=== PATIENT | male | born 1995 | race African-American/Black ===

== ENCOUNTER 2023-12-15 23:41 | Emergency (ER) | payer SELFPAY ==
[2023-12-16] LABS: BASOPHILS ABSOLUTE AUTO 0.05 10^3/uL (0.00-0.50); BASOPHILS PERCENT AUTO 0.4 % (0-1); EOSINOPHILS ABSOLUTE AUTO 0.62 10^3/uL (0.00-1.50); EOSINOPHILS PERCENT AUTO 5.1 % (0-6); HEMATOCRIT 45.3 % (42.0-52.0); HEMOGLOBIN 14.6 g/dL (14.0-18.0); IMMATURE GRAN ABSOLUTE AUTO 0.04 10^3/uL (0.00-0.49); IMMATURE GRAN PERCENT AUTO 0.3 % (0.0-4.9); LYMPHOCYTES ABSOLUTE AUTO 4.45 10^3/uL (0.60-5.00); LYMPHOCYTES PERCENT AUTO 36.7 % (24-44); MEAN CORPUSCULAR HEMOGLOBIN 28.2 pg (27.0-32.0); MEAN CORPUSCULAR HGB CONC 32.2 g/dL (32.0-36.0); MEAN CORPUSCULAR VOLUME 87.6 fL (83.0-97.0); MONOCYTES ABSOLUTE AUTO 0.94 10^3/uL (0.00-1.50); MONOCYTES PERCENT AUTO 7.8 % (0-10); NEUTROPHILS ABSOLUTE AUTO 6.01 x10^3/uL (1.80-8.00); NEUTROPHILS PERCENT AUTO 49.7 % (41-71); PLATELET COUNT,PLT 297 10^3/uL (150-400); RED BLOOD CELL COUNT 5.17 x10^6/uL (4.50-6.00); WHITE BLOOD CELL COUNT,WBC 12.1 10^3/uL (4.0-11.0)
[2023-12-16 00:15] LABS: ALBUMIN 3.2 g/dL (3.4-5.0); BILIRUBIN TOTAL 0.2 mg/dL (0.0-1.0); CALCIUM 8.4 mg/dL (8.4-10.1); CREATININE 1.1 mg/dL (0.7-1.3); EST CRCL DRUG DOSING (CG) 92.64 mL/min; MAGNESIUM 1.9 mg/dL (1.8-2.4); POTASSIUM,K 3.7 mEq/L (3.5-5.0); PROTEIN TOTAL,TP 7.4 g/dL (6.4-8.2)
[2023-12-16] MEDS: Aspirin 81 MG Tab.Chew PO ONE (00:28)
== END 2023-12-16 00:40 | disposition home or self-care (01) ==
LOC: CC.ED 23:41
DX: R07.89 Other chest pain (principal); Z90.49 Acquired absence of other specified parts of digestive tract; F17.210 Nicotine dependence, cigarettes, uncomplicated
CPT/HCPCS: 36415; 71045; 80053; 83615; 83690; 83735; 84484; 85025; 93005; 99285; A9270-GY

== ENCOUNTER 2024-07-13 19:51 | Emergency (ER) | payer SELFPAY ==
[2024-07-13] MEDS: Alum Hydrox/Mag Hydrox/Simeth 30 ML, Lidocaine 2% 15 ML PO ONE (19:22)
[2024-07-13] MEDS: Aspirin 81 MG Tab.Chew PO ONE (19:23)
[2024-07-13 19:34] LABS: BASOPHILS ABSOLUTE AUTO 0.04 10^3/uL (0.00-0.50); BASOPHILS PERCENT AUTO 0.3 % (0-1); EOSINOPHILS ABSOLUTE AUTO 0.41 10^3/uL (0.00-1.50); EOSINOPHILS PERCENT AUTO 3.1 % (0-6); HEMATOCRIT 43.9 % (42.0-52.0); HEMOGLOBIN 14.4 g/dL (14.0-18.0); IMMATURE GRAN ABSOLUTE AUTO 0.03 10^3/uL (0.00-0.49); IMMATURE GRAN PERCENT AUTO 0.2 % (0.0-4.9); LYMPHOCYTES ABSOLUTE AUTO 4.66 10^3/uL (0.60-5.00); LYMPHOCYTES PERCENT AUTO 35.7 % (24-44); MEAN CORPUSCULAR HEMOGLOBIN 27.6 pg (27.0-32.0); MEAN CORPUSCULAR HGB CONC 32.8 g/dL (32.0-36.0); MEAN CORPUSCULAR VOLUME 84.1 fL (83.0-97.0); MONOCYTES PERCENT AUTO 6.9 % (0-10); NEUTROPHILS ABSOLUTE AUTO 7.02 x10^3/uL (1.80-8.00); NEUTROPHILS PERCENT AUTO 53.8 % (41-71); PLATELET COUNT,PLT 348 10^3/uL (150-400); RED BLOOD CELL COUNT 5.22 x10^6/uL (4.50-6.00); WHITE BLOOD CELL COUNT,WBC 13.1 10^3/uL (4.0-11.0)
[2024-07-13 19:50] LABS: ALANINE AMINOTRANSFERASE,ALT 35 U/L (12-78); ALBUMIN 3.9 g/dL (3.4-5.0); ALKALINE PHOSPHATASE 81 U/L (46-116); ASPARTATE AMNIOTRANSFERASE,AST 17 U/L (15-37); BILIRUBIN TOTAL 0.4 mg/dL (0.0-1.0); BLOOD UREA NITROGEN,BUN 7 mg/dL (7-18); CALCIUM 9.2 mg/dL (8.4-10.1); CARBON DIOXIDE,CO2 28 mmol/L (21-32); CHLORIDE,CL 103 mEq/L (98-106); CREATININE 1.2 mg/dL (0.7-1.3); ESTIMATED GFR 83 mL/min (>=60); GLUCOSE RANDOM 97 mg/dL (75-99); LIPASE 35 U/L (16-77); PROTEIN TOTAL,TP 8.1 g/dL (6.4-8.2); SODIUM,NA 141 mEq/L (136-145)
== END 2024-07-13 20:25 | disposition home or self-care (01) ==
LOC: CC.ED 19:51
DX: K21.9 Gastro-esophageal reflux disease without esophagitis (principal); Z90.49 Acquired absence of other specified parts of digestive tract
CPT/HCPCS: 36415; 71046; 80053; 83690; 83735; 84484; 85025; 93005; 99285; A9270

== ENCOUNTER 2024-09-04 05:25 | Emergency (ER) | payer SELFPAY ==
[2024-09-04] MEDS: cloNIDine 0.1 MG Tab PO ONE (05:37)
[2024-09-04 06:16] LABS: BASOPHILS ABSOLUTE AUTO 0.03 10^3/uL (0.00-0.50); BASOPHILS PERCENT AUTO 0.3 % (0-1); EOSINOPHILS ABSOLUTE AUTO 0.38 10^3/uL (0.00-1.50); EOSINOPHILS PERCENT AUTO 3.2 % (0-6); HEMOGLOBIN 15.5 g/dL (14.0-18.0); IMMATURE GRAN ABSOLUTE AUTO 0.06 10^3/uL (0.00-0.49); IMMATURE GRAN PERCENT AUTO 0.5 % (0.0-4.9); LYMPHOCYTES ABSOLUTE AUTO 3.37 10^3/uL (0.60-5.00); LYMPHOCYTES PERCENT AUTO 28.3 % (24-44); MEAN CORPUSCULAR HEMOGLOBIN 27.1 pg (27.0-32.0); MEAN CORPUSCULAR HGB CONC 32.3 g/dL (32.0-36.0); MEAN CORPUSCULAR VOLUME 83.8 fL (83.0-97.0); MONOCYTES ABSOLUTE AUTO 0.86 10^3/uL (0.00-1.50); MONOCYTES PERCENT AUTO 7.2 % (0-10); NEUTROPHILS PERCENT AUTO 60.5 % (41-71); PLATELET COUNT,PLT 381 10^3/uL (150-400); RED BLOOD CELL COUNT 5.73 x10^6/uL (4.50-6.00); WHITE BLOOD CELL COUNT,WBC 11.9 10^3/uL (4.0-11.0)
[2024-09-04 06:20] LABS: APPEARANCE,URINE CLEAR (CLEAR); BILIRUBIN,URINE NEGATIVE (NEGATIVE); COLOR,URINE YELLOW (YELLOW); GLUCOSE,URINE NEGATIVE (NEGATIVE); KETONES,URINE NEGATIVE (NEGATIVE); LEUKOCYTE ESTERASE,URINE NEGATIVE (NEGATIVE); NITRITE,URINE NEGATIVE (NEGATIVE); OCCULT BLOOD,URINE NEGATIVE (NEGATIVE); PROTEIN,URINE NEGATIVE (NEGATIVE); UROBILINOGEN,URINE 0.2 EU/dL (0.2-1.0)
[2024-09-04 06:32] LABS: ALBUMIN 3.9 g/dL (3.4-5.0); BILIRUBIN TOTAL 0.2 mg/dL (0.0-1.0); CALCIUM 9.2 mg/dL (8.4-10.1); CREATININE 1.1 mg/dL (0.7-1.3); POTASSIUM,K 4.2 mEq/L (3.5-5.0); PROTEIN TOTAL,TP 8.5 g/dL (6.4-8.2)
[2024-09-04] MEDS: Hydrochlorothiazide 25 MG Tab PO ONE (07:10)
== END 2024-09-04 07:25 | disposition home or self-care (01) ==
LOC: CC.ED 05:25
DX: I16.0 Hypertensive urgency (principal); F17.210 Nicotine dependence, cigarettes, uncomplicated; Z79.899 Other long term (current) drug therapy; Z90.49 Acquired absence of other specified parts of digestive tract
CPT/HCPCS: 36415; 70450; 80053; 81003; 82550; 84484; 85025; 99284; A9270-GY